=== PATIENT | male | born 1995 | race African-American/Black ===

== ENCOUNTER 2017-05-23 15:22 | Emergency (ER) | payer MEDICAID ==
[~2017-05-23] VITALS: Ht 182.9 cm; Wt 81.6 kg
--- NOTE | 2017-05-23 15:33 | Emergency Room Report ---
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 N Clinical Suspician of Infection? N Mental Status: 1 - Regular (Normal Baseline) Sepsis Risk:Low Sepsis Risk Have you (or family members/close friends) recently traveled outside the [place]? N If Yes, where/when: Have you had exposure to infectious disease within the past month? N TB? Other? Specify: Comment The patient is a difficult historian, also exhibiting bizarre behavior. Does not seem to be forthcoming with information. He is brought in by ambulance for a report of altered mental status. The first 3 or 4 times I try to go into the patient's room he was talking on his cell phone, speaking in Persian. When I would try to speak to him he would hold up a finger to indicate for me to stop talking. He is very slow to answer questions. When he speaks his speech is clear, but when asked a question he will delay for sometimes 20-30 seconds staring straight ahead before he will answer. He appears as if he is contemplating his answer or thinking about the question. I was eventually able to speak with him. He was on his cell phone several times during my history taking. It also occasionally text on his phone. 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 He says that he knocked on her door and the person came to the door with a gun and then that person called the police. He will not tell me what his interaction was with the police. He cannot tell me why he was brought to the hospital. He says he lives in [place] on [facility] and was brought here by a coworker. He says he has not recently been ill. He has no chronic medical problems except for asthma. He says he is on Dulera and no other prescription medications. Denies psychiatric problems or medications. He says he has used cannabis oil with caffeine called CBD yesterday and today. He says he has used it only a handful of times in his life. He denies any other drug use or alcohol use. ALLERGIES Coded Allergies: No Known Allergies (05/23/17) (Tristan White MD) History Medical History Immunization Hx DT/Tetanus Unknown Surgical Hx Previous Surgery?N Social History Smoking Hx Smoker: Current Every Day Smoker Tobacco: Yes Type Cigarettes Alcohol Alcohol: No (Tristan White MD) Review of Systems All Other Systems Reviewed and Negative Constitutional denies fever ENT denies: nose discharge, throat pain. Respiratory denies cough, denies shortness of breath Cardiovascular denies chest pain Gastrointestinal denies abdominal pain, denies diarrhea, denies nausea, denies vomiting Psychiatric/Neurological denies headache (Tristan White MD) Physical Exam Vital Signs Vital Signs Date Time Temp Pulse Resp B/P Pulse O2 O2 Flow FiO2 Ox Delivery Rate 05/23 2057 98.5 100 20 165/95 98 05/23 1939 98.8 109 20 150/89 100 05/23 1811 95 16 168/98 98 05/23 1523 98.2 101 16 186/100 98 General Appearance see description in history Eye Exam - bilateral eye normal exam, bilateral eye PERRL, bilateral eye EOMI Ear, Nose, Throat hearing grossly normal, normal ENT inspection Neck normal inspection, non-tender, supple, full range of motion Respiratory Status Yes: trachea midline, chest symmetrical. No: respiratory distress. Lung Sounds bilateral: normal breath sounds, lungs clear. Cardiovascular normal exam, regular rate/rhythm, no peripheral edema, no gallop, no JVD, no murmur, no rub, normal peripheral pulses Peripheral Pulses Pulses normal Yes Gastrointestinal normal bowel sounds, normal exam, non tender, soft, no organomegaly Extremities non-tender, normal range of motion, normal inspection Neurologic order entry II-XII nml as tested, normal exam, no motor/sensory deficits, oriented x 3 Mental status see description in history Skin intact, normal color, warm/dry (Tristan White MD) Medical Decision Making LABS/Meds/Orders Pt receiving controlled substance in ED? No Results/Orders Laboratory Tests 05/23/17 1850: POC Glucose 103 05/23/17 1800: Opiates Screen NEGATIVE, Urine Methadone Screen NEGATIVE, Barbiturates NEGATIVE, Phencyclidine Screen NEGATIVE, Amphetamines Screen NEGATIVE, Benzodiazepines Screen NEGATIVE, Cocaine Screen NEGATIVE, Marijuana (THC) Screen POSITIVE H 05/23/17 1550: Sodium 137, Potassium 4.0, Chloride 101, Carbon Dioxide 28, BUN 12, Creatinine 1.1, Estimated Creat Clear 125, Estimated GFR (MDRD) 86, Glucose 71 L, Calcium 9.7, Total Bilirubin 1.5 H, AST 15, ALT 19, Alkaline Phosphatase 133 H, Total Protein 8.8 H, Albumin 4.8, Globulin 4.0 H, Albumin/Globulin Ratio 1.2, WBC 9.0, RBC 5.50, Hgb 16.8, Hct 50.4, MCV 91.5, RDW 12.0, Plt Count 250, MPV 8.5, Gran % 79.2, Gran # 7.1, Lymphocytes % 14.5, Monocytes % 5.6, Eosinophils % 0.4, Basophils % 0.4, Lymphocytes # 1.3, Monocytes # 0.5, Eosinophils # 0.0, Basophils # 0.0, PUBS MCHC 33.3, MCH 30.5, Salicylates < 0.2 L, Acetaminophen 0 L, Alcohols 0 Orders Procedure Date/time Status FINGERSTICK BLOOD SUGAR 05/23 185 Complete FSBS REQUEST BY CARE AREA 05/23 1846 Active OP COURTSEY MEAL 05/23 1624 Active SALICYLATE 05/23 1551 Complete DRUG ABUSE SCREEN (TRIAGE) 05/23 155 Complete CBC WITH AUTO DIFF 05/23 155 Complete CHEM 12 PROFILE 05/23 1551 Complete ALCOHOL 05/23 1551 Complete Acetaminophen 05/23 155 Complete Progress - 6:45 PM: I spoke with the patient again. His behavior is essentially the same. Police also spoke with him in the emergency room. They report that he told them he was hearing voices and was very depressed. The patient initially denied any psychiatric illness or complaints to me. He now says that he is depressed going back to grade school, sixth grade. He says he has trouble approaching girls and people in general. I asked him whether he is hearing voices, he tells me sometimes he thinks that people outside of his room are talking about him. He says that he feels he needs to control "every little movement" of his body. He says he has cut himself before but not deep enough to bleed or leave any miles or scars. 7:20 PM: The patient's family is reportedly on the way, from [facility]. It will take them several hours to get here. (Tristan White MD) Departure Departure Clinical Impression Primary Impression: Psychosis Qualifiers: Psychosis type: unspecified psychosis type Qualified Code: F29 - Unspecified psychosis not due to a substance or known physiological condition Condition STABLE Referrals NO REFERRAL ED Critical Care Critical Care No (Tristan White MD) Departure Disposition DC Home or Self Care(routine) Patient Instructions DI for Psychosis Additional Instructions see pcp or pschy for eval Discharge Counseling Counseled pt/family regarding diagnosis, test results, follow up needs Comments family here and wish to take pt home (Victorino Baez MD) at 2014 at 2141
[2017-05-23 15:57] LABS: HEMOGLOBIN 16.8 g/dL (14.1-18.0); LYMPH # 1.3 K/mm3 (0.7-4.5); LYMPH % 14.5 % (10-50)
--- OUTSIDE RECORDS SUMMARY | 2017-05-23 16:06 | External Medical Summary Rpt | CCD ---
Author Author , PENNY Organization PENNY Address Unknown Phone [email or web address] Purpose Continuity of Care Document - 01-31-2014 through 2016 Results Labs Lab Lab Date Result Refere Interp Status Commen Order Detail nces retati t Range on ALCOHOL, ETHYL, SERUM (01-31-2014 11:11) Comment: CBN COLLECTION ALCOHOL 01-31-2 < 3 0-3 Normal complet , 014 MG/DL ed ETHYL, 11:11 SERUM HEPATIC FUNCTION PANEL A (01-31-2014 11:11) Comment: CBN COLLECTION SGPT 18-2 26 U/L 12-78 Normal complet (ALT) 014 ed 11:11 BILIRUB -18-2 0.2 0-0.3 Normal complet IN, 014 MG/DL ed CONJUGA 11:11 ANNA BILIRUB 18-2 0.7 0-1.0 Normal complet IN, 014 MG/DL ed TOTAL 11:11 SGOT 18-2 20 U/L 8-35 Normal complet (AST) 014 ed 11:11 PROTEIN 18-2 8.7 6.7-8.3 Above complet , TOTAL 014 G/DL high ed SERUM 11:11 normal ALKALIN 18-2 192 U/L 45-121 Above complet E 014 high ed PHOSPHA 11:11 normal TASE ALBUMIN 18-2 4.3 3.6-4.5 Normal complet 014 G/DL ed 11:11 ACETAMINOPHEN (01-31-2014 11:11) Comment: CBN COLLECTION ACETAMI 18-2 < 2.0 Normal complet NOPHEN 014 UG/ML ed 11:11 Comment: LESS THAN 2.0 Comment: Therapeutic = 10-30 ug/ml Comment: Toxicity at 4 hrs post ingestion: Comment: Possible Toxicity 100-200 ug/ml Comment: Probable Toxicity >200 ug/ml Comment: Endogenous interferents (i.e., bilirubin, hemolysis, and/or Comment: lipemia) may produce a falsely elevated value for samples Comment: containing concentrations less than 50 ug/ml of Comment: acetaminophen.
--- OUTSIDE RECORDS SUMMARY | 2017-05-23 16:06 | External Medical Summary Rpt | CCD ---
Author Author , PENNY Organization P[employer] Address Unknown Phone [email or web address] Purpose Continuity of Care Document - 01-31-2014 [...]
[2017-05-23 16:07] LABS: BUN 12 mg/dL (7-18)
--- OUTSIDE RECORDS SUMMARY | 2017-05-23 16:07 | External Medical Summary Rpt | CCD ---
Author Author , PENNY FRANCIS Address Unknown Phone [email or web address] Immunization Name Date Rout CVX Reac Dose Comm Prov Is Faci e tion ent ider Refu lity Give sed n MCV4 09-1 147 999 Hist H214 No H214 UF 3-20 oric 12 al Info rmat ion - Sour ce Unsp ecif ied Tdap 08-0 115 999 Hist H214 No H214 , 7-20 oric Adso 12 al rbed Info rmat ion - Sour ce Unsp ecif ied Vari 08-0 21 999 Hist H214 No H214 cell 7-20 oric a 12 al Info rmat ion - Sour ce Unsp ecif ied Hep 08-0 83 999 Hist H214 No H214 A, 7-20 oric ped/ 12 al adol Info , 2D rmat ion - Sour ce Unsp ecif ied
--- OUTSIDE RECORDS SUMMARY | 2017-05-23 16:07 | External Medical Summary Rpt ---
Demographics Preferred Language Unknown Marital Status Unknown Advent Affiliation Unknown Race Unknown Ethnic Group Unknown Author Author PENNY Dewitt, [employer] Organization [employer] Address Unknown Phone Unavailable
--- OUTSIDE RECORDS SUMMARY | 2017-05-23 16:07 | External Medical Summary Rpt ---
Demographics Preferred Language Unknown Marital Status Unknown Yazdanism Affiliation Unknown Race Unknown Ethnic Group Unknown Author Author PENNY Dewitt, [employer] Organization [employer] Address Unknown Phone Unavailable
--- OUTSIDE RECORDS SUMMARY | 2017-05-23 16:07 | External Medical Summary Rpt | CCD ---
Author Author [employer] Organization [employer] Address Unknown Phone Unavailable Purpose Continuity of Care Document - through 2016
--- OUTSIDE RECORDS SUMMARY | 2017-05-23 16:07 | External Medical Summary Rpt | CCD ---
Author Author , PENNY FRANCIS Address Unknown Phone [email or web address] Immunization Name Date Rout CVX Reac Dose [...]
[2017-05-23 16:12] LABS: GFR (ESTIMATED) 86 ML/MIN (>60)
[2017-05-23 18:15] LABS: AMPHETAMINES/METAMPHETAMINES NEGATIVE ng/mL (<1000)
[2017-05-23 22:01] VITALS: BP 172/90
== END 2017-05-23 22:01 | disposition home or self-care (01) ==
LOC: ER 15:22
PROVIDERS: Emergency Medicine
DX: F29 Unspecified psychosis not due to a substance or known physiological condition (principal)